=== PATIENT | male | born 1995 | race Caucasian/White ===

== ENCOUNTER 2017-08-08 17:28 | Emergency (ER) | payer OTHER ==
[~2017-08-08] VITALS: Ht 180.3 cm; Wt 77.1 kg
[2017-08-08] MEDS ORDERED: NOHOMEMEDICATIONS (18:21)
[2017-08-08 19:13] LABS: INFLUENZA A ANTIGEN None Detected (None Detect); INFLUENZA B ANTIGEN None Detected (None Detect)
[2017-08-08] MEDS ORDERED: TESSALON PERLE100 MG PO (19:15)
[2017-08-08] MEDS ORDERED: IBUPROFEN 600600 M1 PO (19:15)
[2017-08-08 19:25] VITALS: BP 111/74
== END 2017-08-08 19:25 | disposition home or self-care (01) ==
LOC: M.ERS 17:28
PROVIDERS: Nurse Practitioner Family
DX: J06.9 Acute upper respiratory infection, unspecified (principal)

== ENCOUNTER 2018-02-19 22:22 | Emergency (ER) | payer BC ==
[~2018-02-19] VITALS: Ht 180.3 cm; Wt 80.7 kg
[~2018-02-19 22:22] MED LIST: IBUPROFEN 600600 M1 PO; NOHOMEMEDICATIONS; TESSALON PERLE100 MG PO
[2018-02-19] MEDS ORDERED: BACTRIM DS TAB1 EAC1 PO (23:07)
[2018-02-19 23:23] VITALS: BP 135/79
== END 2018-02-19 23:23 | disposition home or self-care (01) ==
LOC: M.ERS 22:22
DX: L73.9 Follicular disorder, unspecified (principal); B08.4 Enteroviral vesicular stomatitis with exanthem; Z87.01 Personal history of pneumonia (recurrent); Z90.49 Acquired absence of other specified parts of digestive tract